=== PATIENT | female | born 1990 | race Hispanic/Latino ===

== ENCOUNTER 2017-05-06 09:58 | Outpatient (CLI) | payer OTHER ==
[2017-05-06 10:26] LABS: #Basophils 0.1 thou/uL (0.0-0.2); #Eosinphils 0.1 thou/uL (0.0-0.7); #Lymphocytes 1.8 thou/uL (1.20-3.40); #Monocytes 0.5 thou/uL (0.11-0.59); #Neutrophils 3.6 thou/uL (1.40-6.50); %Basophils 0.9 % (0.0-1.0); %Eosinophils 1.3 % (0.0-10.0); %Lymphocytes 29.9 % (21.0-51.0); %Monocytes 8.3 % (0.0-10.0); Hematocrit 34.8 % (36.0-47.0); Mean Platelet Volume 7.7 fL (7.4-10.4); Red Blood Cell (RBC) Count 3.97 mill/uL (4.20-5.40); White Blood Cell (WBC) Count 6.1 thou/uL (4.8-10.8)
[2017-05-06 10:27] LABS: Bilirubin Negative (Negative); Blood, Urine Trace (Negative); Glucose, Urine (Dipstick) Negative (Negative); Ketone, Urine Negative (Negative); Nitrite Negative (Negative); Protein, Urine (Dipstick) Negative (Neg-Trace); Urobilinogen 0.2 mg/dL (0.2-1.0)
[2017-05-06 10:52] LABS: Bacteria/HPF Rare-Few HPF (None Seen); RBC/HPF 0-3 HPF (0-3)
[2017-05-06 10:58] LABS: ALT (SGPT) 12 U/L (8-55); AST (SGOT) 15 U/L (5-34); Alkaline Phosphatase 38 U/L (40-150); Anion Gap 10 mmol/L (10-20); BUN (Urea Nitrogen) 15 mg/dL (7.0-18.7); Bilirubin, Total 0.7 mg/dL (0.2-1.2); Calc. Creatinine Clearance 0 mL/min (70-130); Calcium 9.4 mg/dL (7.8-10.44); Carbon Dioxide 27 mmol/L (22-29); Chloride 106 mmol/L (98-107); Estimated GFR-MDRD Greater than 90; Protein, Total 7.5 g/dL (6.0-8.3)
--- NOTE | 2017-05-06 11:16 | RAD ---
3 VIEWS LUMBAR SPINE INCLUDING AP PELVIC INLET AND LATERAL VIEWS OF LUMBOSACRAL SPINE: Date: 05/06/17 HISTORY: pelvic and tail bone pain FINDINGS: No evidence of sacral or coccygeal fractures seen. No significant bony lesions or abnormalities note d. IMPRESSION: Normal 3 views of sacrum and coccyx. POS: [facility]
[2017-05-08 23:10] LABS: HSV-2 IgG Type Specific Less than 0.91 index (0.00-0.90)
== END 2017-05-06 09:59 | disposition home or self-care (01) ==
LOC: SCSRAD 09:58
PROVIDERS: ATTEND Family Medicine
DX: Z11.3 Encounter for screening for infections with a predominantly sexual mode of transmission (principal); M53.3 Sacrococcygeal disorders, not elsewhere classified
CPT/HCPCS: 36415; 72220; 80053; 81001; 84443; 85025; 86592; 86694; 86695; 86696; 87389

== ENCOUNTER 2018-10-02 17:34 | Day surgery (SDC) | payer OTHER ==
[2018-10-02 18:09] VITALS: BMI 25.6
--- NOTE | 2018-10-02 20:09 | PDOC.LDHP ---
Labor and Delivery H&P HPI: Patient is a at 32 weeks EGA with a reported hx of GDM and anemia who presents with pelvic pressure, light occasional discharge, and general fatigue for several days. She missed her appt with Dr Mcneil on Saturday but has an appt scheduled for Saturday. She denies fever, abdominal pain and contractions and vaginal bleeding. Current gestational age (weeks): 32 Due date: 11/24/18 (by 13 wk U/S) Dating criteria: first trimester ultrasound Grav: 3 Para: 2 OB History Details: GDMA1, anterior uterine fibroid, ASCUS pap, A positive, HIV neg, RPR neg, Rubella immune. Current complications: gestational diabetes Abnormal US findings: Yes (Anterior uterine fibroid) Current medications: pre-ambrocio vitamins Previous surgical history: none Allergies/Adverse Reactions: Allergies Allergy/AdvReac Type Severity Reaction Status Date / Time No Known Allergies Allergy Verified 10/02/18 18:09 Social history: none - Physical Exam Vital signs reviewed and normal: yes General: NAD Abdomen: gravid (NTTP) Extremeties: no edema FHT: category 1 (Normal baseline, positive spontaneous accels. normal for 32 weks EGA) - OB Labs Blood type: A RH: positive Antibody Screen: negative HIV: negative RPR: negative 1 hour GCT: positive 3 hour GTT: positive GBS: unknown Rubella: immune - Assessment For her vaginal discharge and pelvic pain I first performed a sterile speculum exam, obtoaining a fFN,VP3 and amnisure. No pooling fluid observed. Cervix appeared closed. No blood in vaginal vault. No significant discharge. After sterile speculum exam completed, cervical exam was 1/thick/ -3. Awaiting test results. Anticipate discharge to home thereafter.
[2018-10-02 20:36] LABS: Amnisure Internal Control QC ACCEPTABLE (ACCEPTABLE); Amnisure Test No Membranes Rupture (No Rupture)
[2018-10-02 20:52] LABS: FFN Internal QC Analyzer PASS (PASS); FFN Internal QC Cassette PASS (PASS); Fetal Fibronectin Negative (Negative)
--- NOTE | 2018-10-02 21:06 | PDOC.EVN ---
Event Note - Event Note Event Note: Amnisure and fFn negative. Discharge to home.
== END 2018-10-02 21:18 | disposition home or self-care (01) ==
LOC: L&D/OP 17:34
DX: O99.89 Other specified diseases and conditions complicating pregnancy, childbirth and the puerperium (principal); N89.8 Other specified noninflammatory disorders of vagina; R10.2 Pelvic and perineal pain; O24.419 Gestational diabetes mellitus in pregnancy, unspecified control; O99.013 Anemia complicating pregnancy, third trimester; D64.9 Anemia, unspecified; O34.13 Maternal care for benign tumor of corpus uteri, third trimester; D25.9 Leiomyoma of uterus, unspecified; Z3A.32 32 weeks gestation of pregnancy; Z79.899 Other long term (current) drug therapy
CPT/HCPCS: 82731; 84112; 87480; 87510; 87660; 99285

== ENCOUNTER 2018-11-06 19:30 | Day surgery (SDC) | payer OTHER ==
[2018-11-06 20:11] VITALS: BMI 26.9
[2018-11-06 21:20] LABS: Amnisure Test No Membranes Rupture (No Rupture)
[2018-11-06 21:21] LABS: Amnisure Internal Control QC ACCEPTABLE (ACCEPTABLE)
--- NOTE | 2018-11-06 22:14 | PDOC.FPROB ---
FMR OB H&P: HPI - History of Present Illness Chief Complaint: leaking fluid Indentification: @ 37.4 History of Present Illness: at 37.4 by LMP/13.1wk siva presents to L&D for leaking fluid. Started this afternoon, slow leakage of clear fluid that soaked through underwear and shorts. Denies big gush of fluid. Denies VB; endorses FM and CTX. Denies HUNTER, chest pain, SOB. Checked in clinic last week . Primary Care Physician: Dr. 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: High risk HPV, plan for colpo 6wk PP - Surgical History Sx History: denies - Social History Social History: denies t/e/d FMR OB H&P: Medications - Current Home Medications: Medication Instructions Recorded Confirmed Type Ferrous Sulfate 325 mg PO DAILY 11/06/18 11/06/18 History Allergies/Adverse Reactions: Allergies Allergy/AdvReac Type Severity Reaction Status Date / Time No Known Allergies Allergy Verified 11/06/18 20:11 FMR OB H&P: ROS - Review of Systems General: denies: fever/chills, weight/appetite/sleep changes Eyes: denies: eye pain ENT: denies: nasal congestion, rhinorrhea Cardiovascular: denies: chest pain, edema Respiratory: denies: cough, congestion, shortness of breath Gastrointestinal: denies: abdominal pain Genitourinary (Female): reports: vaginal discharge, contractions. denies: dysuria, vaginal pain, vaginal bleeding, vaginal pressure Musculoskeletal: denies: pain, stiffness Neurologic: denies: seizures Breast: denies: lumps, bumps Psychological: denies: depression, anxiety FMR OB H&P: Vital Signs - Heart Tones Baseline: 140 Variability: moderate Acceleration: present Deceleration: absent Category: category 1 FMR OB H&P: Physical Exam - Physical Exam General: NAD, awake, alert and oriented HEENT: normocephalic and atraumatic, PERRLA, EOMI Neck: supple, FROM Chest: non-tender to palpation Heart: RRR, normal S1/S2 General: CTAB, no respiratory distress, good air movement Abdomen: soft, fundus(cm) Neurological: no focal deficit Skin: no rash, good tugor, capillary refill <2 seconds Lymphatic: no unusual bruising or bleeding Psychiatric: intact recent and remote memory, good judgement and insight, normal mood and affect - Pelvic Exam SVE: FMR OB H&P: Results - Labs Lab results: Laboratory Results - last 24 hr 11/06/18 20:44 Amnio Swab Test No Membranes Rupture FMR OB H&P: A/P - Problem List (1) Term Status: Acute Code(s): Z34.80 - ENCOUNTER FOR SUPRVSN OF NORMAL , UNSP TRIMESTER (2) Gestational diabetes Status: Acute Code(s): O24.419 - GESTATIONAL DIABETES MELLITUS IN , UNSP CONTROL (3) High risk HPV infection Status: Acute Code(s): B97.7 - PAPILLOMAVIRUS THE CAUSE OF DISEASES CLASSIFIED ELSEWHERE (4) Anemia affecting Status: Acute Code(s): O99.019 - ANEMIA COMPLICATING , UNSPECIFIED TRIMESTER (5) Vaginal discharge in third trimester, antepartum Status: Acute Code(s): O26.893 - OTH RELATED CONDITIONS, THIRD TRIMESTER; N89.8 - OTHER SPECIFIED NONINFLAMMATORY DISORDERS OF VAGINA Disposition: 28 at 37.4 by LMP/13.1wk sono term, sIUP -amnisure negative, pooling with white discharge, pending VP3 -FHT: Cat I, uterine irritability -SVE: , unchanged from check in clinic last week -Due to patient uncomfortability will continue to monitor for labor rule out A1GDM -POC at home have been w/in range High risk HPV -plan for colpo 6wk Anemia of -continue ferrous sulfate Discussed with Dr. Jarrell Discussion: Date/Time: 11/06/18 955 This H&P was discussed with [] and [] who agree with the above documentation and plan. Addendum - Attending - Attending Attestation Date/Time: 11/07/18 4972 I personally evaluated the patient and discussed the management with Dr. Matson last evening. I agree with the History, Examination, Assessment and Plan documented above with any addition or exceptions noted below.
--- NOTE | 2018-11-07 00:44 | PDOC.EVN ---
Event Note - Event Note Event Note: Recheck was unchanged at 3. Discussed w/ pt going home vs. staying. Patient opted to go home and discussed labor precuations to return if feeling stronger contractions or very uncomfortable.
== END 2018-11-07 00:58 | disposition home or self-care (01) ==
LOC: L&D/OP 19:30
PROVIDERS: ATTEND Student in an Organized Health Care Education/Training Program
DX: O26.893 Other specified pregnancy related conditions, third trimester (principal); N89.8 Other specified noninflammatory disorders of vagina; O99.013 Anemia complicating pregnancy, third trimester; O24.419 Gestational diabetes mellitus in pregnancy, unspecified control; O98.313 Other infections with a predominantly sexual mode of transmission complicating pregnancy, third trimester; O99.830 Other infection carrier state complicating pregnancy; B97.7 Papillomavirus as the cause of diseases classified elsewhere; Z3A.37 37 weeks gestation of pregnancy; Z79.899 Other long term (current) drug therapy
CPT/HCPCS: 84112; 87480; 87510; 87660; 99285

== ENCOUNTER 2018-11-08 08:18 | Day surgery (SDC) | payer OTHER ==
--- NOTE | 2018-11-08 09:00 | PDOC.FPROB ---
Addendum entered and electronically signed by Casandra Mcneil DO 11/08/18 10 :04: Category I strip Baselien 140's Accelerations present No deceleration BP 108/69 Pulse 89 Afebrile Original Note: FMR OB H&P: HPI - History of Present Illness Chief Complaint: Vaginal spotting Indentification: 28 year old at 37.5 wks by LMP/13.1 wk sono History of Present Illness: 28 year old at 37.5 wks by LMP/13.1 wk sono presents with a one day history of vaginal spotting. She states that yesterday she noted brown discharge when wiping. She did not think much of it, but this morning when she wiped she noted pink d/c on toilet paper. She couldn't quantify how much was present but states she feels like it was on most of the toilet paper she was using. She did not notice any spotting or discharge on her underwear. Patient endorses contractions q30 minutes and vaginal pressure. She denies LoF. She endorses good movement. 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 Will need Colpo 6 wk PP. - Surgical History Sx History: Denies - Social History Social History: Denies alcohol, tobacco, or drug use. - Family History Family History: Noncontributory. FMR OB H&P: Medications - Current Home Medications: Medication Instructions Recorded Confirmed Type Ferrous Sulfate 325 mg PO DAILY 11/06/18 11/06/18 History Allergies/Adverse Reactions: Allergies Allergy/AdvReac Type Severity Reaction Status Date / Time No Known Allergies Allergy Verified 11/08/18 08:47 FMR OB H&P: ROS - Review of Systems General: denies: fever/chills, weight/appetite/sleep changes Eyes: denies: vision changes, double vision, scotomas ENT: denies: nasal congestion, rhinorrhea, sore throat Cardiovascular: reports: edema (feet b/l). denies: chest pain, palpitation Gastrointestinal: denies: abdominal pain, cramping, nausea, vomiting, diarrhea, constipation Genitourinary (Female): reports: polyuria, vaginal discharge (brown spotting), contractions (q30 min), vaginal pressure. denies: incontinence, dysuria Musculoskeletal: denies: pain, stiffness, tenderness Neurologic: denies: numbness, syncope Hematologic/Lymphatic: denies: prolonged or excessive bleeding Psychological: denies: depression, anxiety FMR OB H&P: Physical Exam - Physical Exam General: NAD, awake, alert and oriented HEENT: MMM, grossly normal vision, grossly normal hearing Heart: RRR, normal S1/S2, no murmurs/rubs/gallops General: CTAB, no respiratory distress Abdomen: soft, gravid, non-tender Musculoskeletal: pulses present, FROM in all four extremities Neurological: no tremor, no focal deficit Skin: no rash, capillary refill <2 seconds Lymphatic: no unusual bruising or bleeding, no purpura Psychiatric: intact recent and remote memory, good judgement and insight, normal mood and affect - Pelvic Exam Vulva: normal hair distribution FMR OB H&P: A/P - Problem List (1) Term Status: Acute Code(s): Z34.80 - ENCOUNTER FOR SUPRVSN OF NORMAL , UNSP TRIMESTER (2) Glucose intolerance Status: Acute Code(s): E74.39 - OTHER DISORDERS OF INTESTINAL CARBOHYDRATE ABSORPTION (3) Anemia affecting Status: Acute Code(s): O99.019 - ANEMIA COMPLICATING , UNSPECIFIED TRIMESTER (4) High risk HPV infection Status: Acute Code(s): B97.7 - PAPILLOMAVIRUS THE CAUSE OF DISEASES CLASSIFIED ELSEWHERE (5) Vaginal spotting Status: Acute Code(s): N93.9 - ABNORMAL UTERINE AND VAGINAL BLEEDING, UNSPECIFIED Disposition: 28 year old at 37.5 wks by LMP/13.1 wk sono presents with a one day history of vaginal spotting 1. TIUP - 37.5 wks - Complicated by glucose intolerance - Contractions q30 minutes 2. Vaginal spotting - VP3 performed 3 days ago negative - Will get straight cath UA to verify no urine infection; clean UA - No recent sexual intercourse - Appears to be resolving - Cervical exam unchanged from 2 days ago 2 - Reassurance 3. Anemia of - Continue iron supplementation 4. Glucose intolerance - Abnml 1h GTT, refused 3h GTT - BG at home wnl 5. ASCUS with HR HPV - Colpo in 6 weeks Dispo: Plan to d/c home with labor precautions. Discussion: Date/Time: 11/08/18 8149 This H&P was discussed with Dr. Rutledge who agrees with the above documentation and plan. Signature: Casandra Mcneil, PGY-2 Addendum - Attending - Attending Attestation Date/Time: 11/08/18 9953 I personally evaluated the patient and discussed the management with Dr. Mcneil. I agree with the History, Examination, Assessment and Plan documented above with any addition or exceptions noted below.
[2018-11-08 09:32] LABS: Bilirubin Negative (Negative); Blood, Urine Negative (Negative); Clarity CLEAR (Clear); Glucose, Urine (Dipstick) Negative (Negative); Leukocyte Negative (Negative); Nitrite Negative (Negative); Protein, Urine (Dipstick) Negative (Neg-Trace); Urobilinogen 0.2 mg/dL (0.2-1.0); pH, Urine 6.5 (5.0-9.0)
== END 2018-11-08 10:25 | disposition home or self-care (01) ==
LOC: L&D/OP 08:18
PROVIDERS: ATTEND Family Medicine
DX: O26.853 Spotting complicating pregnancy, third trimester (principal); O99.013 Anemia complicating pregnancy, third trimester; O99.283 Endocrine, nutritional and metabolic diseases complicating pregnancy, third trimester; E74.39 Other disorders of intestinal carbohydrate absorption; O98.313 Other infections with a predominantly sexual mode of transmission complicating pregnancy, third trimester; B97.7 Papillomavirus as the cause of diseases classified elsewhere; Z3A.37 37 weeks gestation of pregnancy; Z79.899 Other long term (current) drug therapy
CPT/HCPCS: 51701; 81003; 99282

== ENCOUNTER 2018-11-17 06:30 | Inpatient (IN) | payer OTHER ==
[2018-11-17 08:41] VITALS: BMI 28.3
--- NOTE | 2018-11-17 08:50 | PDOC.FPROB ---
FMR OB H&P: HPI - History of Present Illness Chief Complaint: induction Indentification: 28 yo @ 39.0 wk by LMP/13.1 wk sono History of Present Illness: 28 yo @ 39.0 wk by LMP/13.1 wk sono presents for elective IOL. +FM, no vaginal bleeding, abnormal discharge, or LOF. Primary Care Physician: [facility], Dr. Mcneil FMR OB H&P: Current - Care : 3 Para: 2001 Gestational age: 39.0 Due date: 11/24/18 Dating Criteria: LMP/13.1 wk sono Total weight gain: 37 lb Course/Complications: anemia of Glucose intolerance excessive weight gain of 37 lbs BV treated with flagyl this - OB Labs Blood type: A RH: positive Antibody Screen: negative HIV: negative RPR: negative HepBsAg: negative Rubella: immune Gonorrhea: negative Chlamydia: negative Pap Smear: ASCUS 1 hour gtt: 176 3 hour GTT: not performed at patient request A1c: 5.3 GBS: negative H&H: 9.4/27.1 on 10/07/18 - Additional Ultrasound Additional: uterine fibroid 4 cm x4cm seen on sono, sent to [facility]: ultrasound which made no mention of a fibroid FMR OB H&P: History - Past Medical History PMH: Denies - OB History OB History: @ termx2 1st - @ 40 weeks 2nd - via induction @ 38 wks for A1GDM - BAGGAGEMAN History BAGGAGEMAN History: ASCUS with HR HPV on recent pap smear. Will need Colpo 6 wks PP. - Surgical History Sx History: Denies - Social History Social History: Denies tobacco, alcohol, or drug use - Family History Family History: Parents both healthy. Reports pGM has DM, HTN, and possibly a heart problem (unsure of what). Denies history of other genetic diseases or cancer. FMR OB H&P: Medications - Current Home Medications: Medication Instructions Recorded Confirmed Type Ferrous Sulfate 325 mg PO DAILY 11/06/18 11/17/18 History Allergies/Adverse Reactions: Allergies Allergy/AdvReac Type Severity Reaction Status Date / Time No Known Allergies Allergy Unverified 11/17/18 10:51 FMR OB H&P: ROS - Review of Systems General: denies: fever/chills, weight/appetite/sleep changes Eyes: reports: vision changes (blurry vision occasionally over last 2 months). denies: double vision, scotomas ENT: reports: nasal congestion, rhinorrhea. denies: sore throat Cardiovascular: reports: edema. denies: chest pain, palpitation Gastrointestinal: denies: abdominal pain, cramping, nausea, vomiting, diarrhea, constipation Genitourinary (Female): reports: polyuria, contractions (q12-15 minutes, back pain; patient reports she can talk through them), vaginal pressure. denies: incontinence, dysuria, vaginal pain, vaginal bleeding Musculoskeletal: denies: pain, stiffness, tenderness Neurologic: denies: numbness, syncope Hematologic/Lymphatic: denies: prolonged or excessive bleeding Psychological: denies: depression, anxiety FMR OB H&P: Vital Signs - Maternal Vital signs: Vital Signs - First Documented Temp Pulse Resp BP 98.3 F 75 18 117/72 11/17/18 07:42 11/17/18 07:42 11/17/18 07:42 11/17/18 07:42 - Heart Tones Baseline: 140 Variability: moderate Acceleration: present Deceleration: absent Category: category 1 [place] contractions every: only 1 seen FMR OB H&P: Physical Exam - Physical Exam General: NAD, awake, alert and oriented HEENT: normocephalic and atraumatic, PERRLA, MMM, grossly normal hearing, oropharynx clear Neck: supple, no LAD Heart: RRR, normal S1/S2, no murmurs/rubs/gallops, pulses present General: CTAB, no respiratory distress, good air movement, no rales/rhonchi, no wheezing Abdomen: soft, gravid, non-tender, bowel sound present Musculoskeletal: pulses present, no atrophy Neurological: no clonus, no focal deficit Skin: no rash, good tugor, capillary refill <2 seconds Lymphatic: no unusual bruising or bleeding, no purpura Psychiatric: intact recent and remote memory, good judgement and insight, normal mood and affect - Pelvic Exam SVE: /-2 @ 0915 Presentation: head down on bedside sono FMR OB H&P: A/P - Problem List (1) Term Current Visit: No Status: Acute Code(s): Z34.80 - ENCOUNTER FOR SUPRVSN OF NORMAL , UNSP TRIMESTER (2) Anemia affecting Current Visit: No Status: Acute Code(s): O99.019 - ANEMIA COMPLICATING , UNSPECIFIED TRIMESTER (3) Glucose intolerance Current Visit: No Status: Acute Code(s): E74.39 - OTHER DISORDERS OF INTESTINAL CARBOHYDRATE ABSORPTION (4) Excessive weight gain affecting Current Visit: Yes Status: Acute Code(s): O26.00 - EXCESSIVE WEIGHT GAIN IN , UNSPECIFIED TRIMESTER (5) High risk HPV infection Current Visit: No Status: Acute Code(s): B97.7 - PAPILLOMAVIRUS THE CAUSE OF DISEASES CLASSIFIED ELSEWHERE Discussion: Date/Time: 11/17/18 0850 28 year old at 39.0 wks by LMP/13.1 wk sono presents for induction of labor, SILVIA 11/24/18 1. TIUP - elective IOL @ 39.0 wks - GBS neg - Complicated by glucose intolerance and anemia of - FHTs: 140, accels present, no decels - SVE: /-2 @ 0915 - Start pitocin induction 3. Anemia of - 9.4/27.1 on 10/07/18 - Continue iron supplementation 4. Glucose intolerance - Abnml 1h GTT, refused 3h GTT - Home glucoses were well controlled per PCP - A1C 5.3 - BG at home wnl 5. ASCUS with HR HPV - Colpo 6 weeks PP 6. Excessive weight gain in - 123 lbs pre- (BMI of 21) - now 161 lbs, 37 lb weight gain PCP: Dr. Mcneil Addendum - Attending - Attending Attestation Date/Time: 11/17/18 0911 I personally evaluated the patient and discussed the management with Dr. Pfeiffer I agree with the History, Examination, Assessment and Plan documented above with any addition or exceptions noted below. 28 yo female at 39.0 wks by LMP/13.1 wk sono here for elective IOL SILVIA: 11/24/18 Patient denies any current complications. Denies VB, LOF, and decreased movement. Bedside sono: Cephalic. Posterior placenta. FHT cat 1. Occasional contractions. Maternal VS reviewed. R/B/A discussed. Questions answered. Consents signed. Will proceed with pitocin induction. [place] 6. Continuous monitoring. Repeat exam prn or in 4 hours. Will check POC glucose with labs due to glucose intolerance. Casa
[2018-11-17] MEDS: Lactated Ringer's 1,000 ML IV SCH ×3 (08:52→19:32)
[2018-11-17] MEDS ORDERED: Methylergonovine 0.2 MG/ML VIAL IM PRN (08:57)
[2018-11-17] MEDS ORDERED: Misoprostol 200 MCG TAB PR PRN (08:57)
[2018-11-17] MEDS ORDERED: Acetaminophen 500 MG TAB PO PRN (08:57)
[2018-11-17] MEDS ORDERED: Ondansetron PF 4 MG/2 ML Vial IVP PRN ×2 (08:57→11:31)
[2018-11-17] MEDS ORDERED: Carboprost 250 MCG/ML AMP IM PRN (08:57)
[2018-11-17] MEDS ORDERED: Lidocaine 1% (PF) 30 ML VIAL SC PRN (08:57)
[2018-11-17] MEDS ORDERED: Promethazine HCl 25 MG/ML VIAL IM PRN ×2 (08:57→11:31)
[2018-11-17] MEDS ORDERED: NS / Oxytocin 40 units/1000ml 1,000 ML IV PRN (08:57)
[2018-11-17 09:48] LABS: Hemoglobin 10.1 g/dL (12.0-16.0); Mean Corpuscular HGB CONC 33.7 g/dL (32.0-36.0); Mean Corpuscular Hemoglobin 29.8 pg (27.0-31.0); Mean Corpuscular Volume 88.2 fL (78.0-98.0); Mean Platelet Volume 7.8 fL (7.4-10.4); Platelet Count 304 thou/uL (130-400); Red Blood Cell (RBC) Count 3.39 mill/uL (4.20-5.40); White Blood Cell (WBC) Count 8.9 thou/uL (4.8-10.8)
[2018-11-17] MEDS ORDERED: NS w/ Oxytocin 10 units 500 ML IV SCH ×3 (10:15)
[2018-11-17 10:18] LABS: HBSAg Index 0.36 S/CO (0-0.99); Hep B Surf Ag Non-Reactive S/CO (NonReactive)
[2018-11-17 10:23] LABS: Syphilis Antibody Nonreactive (Nonreactive); Syphilis Antibody Index 0.04 S/CO (<1.00 Non-Reactive)
[2018-11-17] MEDS ORDERED: Fentanyl 4 mcg/Bup 0.1% Cadd 100 ML ONE ×2 (10:25→18:30)
[2018-11-17] MEDS ORDERED: Lidocaine 1.5%/Epinephrine 1:200,000 5 ML AMPUL IJ ONE (10:30)
[2018-11-17] MEDS ORDERED: diphenhydrAMINE 50 MG/ML VIAL IVP PRN (11:31)
[2018-11-17] MEDS ORDERED: Lactated Ringer's 500 ML IV PRN (11:31)
[2018-11-17] MEDS ORDERED: Eucerin (Mineral Oil/Petrolatum,White) 30 gm Jar TOP PRN (11:31)
[2018-11-17] MEDS ORDERED: Naloxone HCl 0.4 mg/ml Vial IVP PRN ×2 (11:31)
[2018-11-17] MEDS ORDERED: ePHEDrine/0.9% NaCl/PF SYRINGE 50 mg/10 ml SLOW IVP PRN (11:31)
[2018-11-17] MEDS ORDERED: Communication Order-Pharmacy FS SCH (11:45)
[2018-11-17] MEDS ORDERED: Fentanyl 4 mcg/Bupivacaine 0.1% Cassette 100 ML EPIDURAL SCH (11:45)
--- NOTE | 2018-11-17 12:25 | PDOC.LDPN ---
Labor & Delivery Progress Note - Subjective Subjective: comfortable - Objective Vital signs reviewed and normal: yes General: NAD, resting Uterine fundus: non tender [place] contractions every: q5 min -: 1. TIUP - elective IOL @ 39.0 wks - GBS neg - Complicated by glucose intolerance and anemia of - FHTs: 130, accels present, 1 variable and 1 late decel present, intermittent Cat 2 strip - SVE: /-2 @ 0915 - SVE: /-2 @ 1245 - Continue pitocin induction, recheck SVE in 4 hours, will continue to monitor strip 3. Anemia of - 9.4/27.1 on 10/07/18 - Continue iron supplementation 4. Glucose intolerance - Abnml 1h GTT, refused 3h GTT - Home glucoses were well controlled per PCP - A1C 5.3 - BG at home wnl 5. ASCUS with HR HPV - Colpo 6 weeks PP 6. Excessive weight gain in - 123 lbs pre- (BMI of 21) - now 161 lbs, 37 lb weight gain PCP: Dr. Mcneil Addendum - Attending - Attending Attestation Date/Time: 11/17/18 1300 I personally evaluated the patient and discussed the management with Dr. Pfeiffer I agree with the History, Examination, Assessment and Plan documented above with any addition or exceptions noted below. 28 yo female at 39.0 wks by LMP/13.1 wk sono here for elective IOL SILVIA: 11/24/18 Doing well. No complaints of pain, LOF, or VB FHT cat 1 to brief cat 2. ctx q 8 mins SVE unchanged. Continue IOL per pitocin protocol. Nursing staff stretched and unable to manage pitocin as strict as possible. Pitocin adjustments increasing slowly. Fetus tolerating well. Will continue monitoring closely. Glucose intolerance. POC WNL. ASCUS pap. Needs pp colpo. Mild iron def anemia. Casa
[2018-11-17] MEDS ORDERED: Dextrose 5%-Lactated Ringers 1,000 ML IV SCH (17:00)
--- NOTE | 2018-11-17 17:01 | PDOC.LDPN ---
Labor & Delivery Progress Note - Subjective Subjective: comfortable, no concerns - Objective Vital signs reviewed and normal: yes General: NAD, resting Uterine fundus: non tender SVE: 50/-1 FHT: category 2 [place] contractions every: q3 minutes Resuscitative measures: other (juice PO) - Assessment (1) Term Code(s): Z34.80 - ENCOUNTER FOR SUPRVSN OF NORMAL , UNSP TRIMESTER Current Visit: No Status: Acute (2) Anemia affecting Code(s): O99.019 - ANEMIA COMPLICATING , UNSPECIFIED TRIMESTER Current Visit: No Status: Acute (3) Glucose intolerance Code(s): E74.39 - OTHER DISORDERS OF INTESTINAL CARBOHYDRATE ABSORPTION Current Visit: No Status: Acute (4) Excessive weight gain affecting Code(s): O26.00 - EXCESSIVE WEIGHT GAIN IN , UNSPECIFIED TRIMESTER Current Visit: Yes Status: Acute (5) High risk HPV infection Code(s): B97.7 - PAPILLOMAVIRUS THE CAUSE OF DISEASES CLASSIFIED ELSEWHERE Current Visit: No Status: Acute Plan: continue plan of care -: 28 yo @ 39.0 wk by LMP/13.1 wk sono presents for elective IOL. TIUP - elective IOL @ 39.0 wks - GBS neg - Complicated by glucose intolerance and anemia of - SVE: 50/-2 @ 0915, pitocin started - SVE: 50/-2 @ 1245 - SVE: 50/-1 @ 1645 - FHTs: 130, accels present, occasional variable decel with intermittent minimal variability. Intermittent Cat 2 strip. -Variability improved with PO juice - Continue pitocin induction. Continue to monitor strip. Recheck SVE in 4 hours. LR transitioned to D5 LR. Addendum - Attending - Attending Attestation Date/Time: 11/17/18 1720 I personally evaluated the patient and discussed the management with Dr. Pfeiffer. I agree with the History, Examination, Assessment and Plan documented above with any addition or exceptions noted below. Cat 1 (mod thelma, + accels, - decels) on my last review of strip. Recheck in 2 hours and plan for AROM at that time.
--- NOTE | 2018-11-17 18:43 | PDOC.LDPN ---
Labor & Delivery Progress Note - Subjective Subjective: comfortable - Objective Vital signs reviewed and normal: yes General: NAD, resting Uterine fundus: non tender SVE: 18:30 Dilation: 5 Effacement: 75% Station: -1 FHT: category 1, variability present [place] contractions every: q2 min AROM: clear fluid - Assessment (1) Encounter for elective induction of labor Code(s): Z34.90 - ENCNTR FOR SUPRVSN OF NORMAL , UNSP, UNSP TRIMESTER Current Visit: Yes Status: Acute Plan: continue plan of care, labor augmentation, pitocin for augmentation -: Continue augmentation with pitocin. Cat I strip currently. AROM, clear fluid at 18:30. 5/70/-1 at that time. Recheck in 2 hours.
--- NOTE | 2018-11-17 21:31 | PDOC.EVN ---
Event Note - Event Note Event Note: Attending Note - I was present and supervised/assisted with the of a 28 yo @39 weeks admitted for elective induction of labor who progressed to complete after initiation of pitocin. She delivered a viable male infant over an intact perineum. Loose nuchal cord. Apgars 9 /9. Placenta delivered spontaneously and intact. 3V cord. No epis or l;acerations. UMS=807 mL. Resident Star Mcneil.
[2018-11-17] MEDS ORDERED: Bisacodyl 10 MG SUPP PR PRN (23:22)
[2018-11-17] MEDS ORDERED: Adacel (T-DAP) 0.5 ML SYRINGE IM ONE (23:22)
[2018-11-17] MEDS ORDERED: Milk Of Magnesia 30 ML UDCUP PO PRN (23:22)
[2018-11-17] MEDS ORDERED: diphenhydrAMINE 25 MG CAP PO PRN (23:22)
[2018-11-17] MEDS ORDERED: Lanolin Ointment 7 GM TUBE TOP PRN (23:22)
[2018-11-17] MEDS ORDERED: NS / Oxytocin 40 units/1000ml 1,000 ML IV SCH (23:22)
[2018-11-17] MEDS ORDERED: Preparation H Ointment 28 GM TUBE PR PRN (23:22)
[2018-11-17] MEDS ORDERED: Docusate Calcium (SURFAK) 240 MG CAP PO SCH (23:45)
[2018-11-18] MEDS: Ibuprofen 800 MG TAB PO SCH ×4 (00:05→22:01)
[2018-11-18] MEDS: Acetaminophen 325 MG TAB PO PRN ×2 (00:55→04:42)
[2018-11-18] MEDS ORDERED: Bupivacaine 0.25% HCL 30 ML VIAL ONE (02:00)
[2018-11-18] MEDS ORDERED: Sodium Chloride 0.9% (PF) 10 ML VIAL ONE (02:00)
--- NOTE | 2018-11-18 02:02 | OP ---
DATE OF PROCEDURE: 11/17/2018 RESIDENT SURGEON: Casandra Mcneil DO. ATTENDING: Candi Osei MD PROCEDURE PERFORMED: Spontaneous vaginal delivery. PREOPERATIVE DIAGNOSES: 1. Encounter for elective induction of labor at 39 weeks. 2. Term intrauterine . 3. Glucose intolerance. 4. Anemia of . 5. Pap smear - ASCUS plus. 6. human papillomavirus. POSTOPERATIVE DIAGNOSES: 1. Term intrauterine , delivered. 2. Glucose intolerance. 3. Anemia of . 4. Pap smear - ASCUS plus. 5. Human papillomavirus. INDICATIONS: This is a 28-year-old, G3, P2-0-0-2 who presented to Labor and Delivery for elective induction of labor. DESCRIPTION OF PROCEDURE: Following uncomplicated antepartum course, a vigorous male infant was delivered over an intact perineum in the occipitoanterior position. Anterior shoulder and remainder of body were delivered. There was a loose nuchal x1, which was reduced after delivery of the . The was bulb suctioned at the perineum. After delayed clamping, cord was cut and cord blood was collected. Placenta was then delivered intact and 3-vessel cord was noted. The perineum was inspected for lacerations and was found to be free of lacerations. Fundus was firm and there was no active bleeding. The was delivered at 20:33 on 11/17. No complications. Apgars were 9 and 9 at 1 and 5 minutes respectively. Infant will go to nursery for routine recovery/care. Job ID: [id number] [id number]
--- NOTE | 2018-11-18 05:01 | PDOC.PP ---
Post Progress Note Post Day #: 1 Subjective: Patient doing well. No significant overnight events. Patient tolerating PO, ambulating, and passing flatus. Patient does endorse low back pain. She is taking her motrin scheduled. It helps a little. She denies any rectum pain. PO intake tolerated: yes Flatus: yes Ambulation: yes Vital Signs (12 hours) Temp Pulse Resp BP Pulse Ox 11/18/18 04:51 98.0 F 85 17 115/60 11/18/18 02:10 98 11/18/18 01:00 98.0 F 78 16 105/58 L 11/17/18 23:50 98.0 F 87 17 119/64 98 Weight Weight 72.575 kg - Physical Examination General: NAD Cardiovascular: no m/r/g, RRR Respiratory: clear to auscultation bilaterally, non-labored breathing Abdominal: + bowel sounds, lochia (minimal), no distention, appropriately TTP Fundus firm & at: umbilicus Neurological: no gross focal deficits Psychiatric: A&Ox3, normal affect Result Diagrams: 11/17/18 09:20 Additional Labs: Post Labs Blood Type A POSITIVE 11/17/18 09:20 Hep Bs Antigen Non-Reactive S/CO (NonReactive) 11/17/18 09:20 (1) (spontaneous vaginal delivery) Code(s): O80 - ENCOUNTER FOR FULL-TERM UNCOMPLICATED DELIVERY Status: Acute - Assessment/Plan 28 year old G3 now P3 delivered TAGA M infant at 39 wk by LMP/13.1 wk sono via on 11/17 at 20:33 1. Routine PP care - No complications - Minimal lochia (a little more than a period) - VSS - Encourage ambulation - Naya motrin for pain control 2. - No complications - No tears 3. ASCUS with HR HPV - Patient needs colpo 6 wks PP Dispo: d/c home tomorrow AM. Addendum - Attending - Attending Attestation Date/Time: 11/18/18 7803 I personally evaluated the patient and discussed the management with Dr. Mcneil I agree with the History, Examination, Assessment and Plan documented above with any addition or exceptions noted below. 28 yo female s/p uncomplicated at 2032 on 11/17/18 HD# 2 PPD# 1 Doing well. Does report lower back pain. Awaiting heating pad. Ambulating without difficulty. Lochia appropriate. Agree with PE as documented. Fundus nontender and firm below umbilicus s/p : Continue routine pp care. Monitor pain control. lower back pain: heat therapy and ambulation breast feeding: has not had great success with previous children. consulted. ascus/hpv pos: colpo 6 wks pp contraception: unsure dispo: routine pp care ABrayMD
[2018-11-18] MEDS: Ferrous Sulfate 325 MG TAB PO SCH ×3 (10:08→17:27)
[2018-11-18] MEDS: Prenatal Vitamin 1 TAB PO SCH (10:14)
[2018-11-18] MEDS: Docusate Calcium (SURFAK) 240 MG CAP PO SCH ×2 (10:14→22:02)
[2018-11-18 17:10] LABS: Hemoglobin 9.2 g/dL (12.0-16.0)
[2018-11-18] MEDS ORDERED: Cyclobenzaprine 10 MG TAB PO SCH (21:00)
[2018-11-19] MEDS: Ibuprofen 800 MG TAB PO SCH ×2 (05:59→13:56)
--- NOTE | 2018-11-19 06:13 | PDOC.PP ---
Post Progress Note Post Day #: 2 Subjective: Patient doing well. She states her lower back on the right side still hurts. The muscle relaxer helped but made her sleepy which made it difficult to feed infant. She states she would like to take it again at some point to help with the muscle pain, but she would like to hold off until after she has fed her . She is still struggling with and has resorted to mostly bottle feeding at this point. She does have a breast pump in her room now which she was encouraged to use. contract consultant has not been by yet to see her. PO intake tolerated: yes Flatus: yes Ambulation: yes Vital Signs (12 hours) Temp Pulse Resp BP Pulse Ox 11/18/18 21:00 98.2 F 87 18 118/67 97 Weight Weight 72.575 kg - Physical Examination General: NAD Deviation from normal: Tender to palpation over right lumbar paraspinal musculature Cardiovascular: no m/r/g, RRR Respiratory: clear to auscultation bilaterally, non-labored breathing Abdominal: + bowel sounds, lochia (minimal), no distention, appropriately TTP Fundus firm & at: below umbilicus Neurological: no gross focal deficits Psychiatric: A&Ox3, normal affect Result Diagrams: 11/18/18 17:02 Additional Labs: Post Labs Blood Type A POSITIVE 11/17/18 09:20 Hep Bs Antigen Non-Reactive S/CO (NonReactive) 11/17/18 09:20 (1) (spontaneous vaginal delivery) Code(s): O80 - ENCOUNTER FOR FULL-TERM UNCOMPLICATED DELIVERY Status: Acute - Assessment/Plan 28 year old G3 now P3 delivered TAGA M infant at 39 wk by LMP/13.1 wk sono via on 11/17 at 20:33 1. Routine PP care - No complications - Minimal lochia - VSS - Encourage ambulation - Naya motrin for pain control 2. - No complications - No tears 3. ASCUS with HR HPV - Patient needs colpo 6 wks PP 4. Low back pain - Appears MSK - Cyclobenzaprine given which helped, but made patient sleepy - Advised that she could take with caution - Once patient returns home, she needs to do daily stretching to help with back pain 5. Anemia of - Initial Hg 10 - Minimal blood loss during delivery of 106 mL - Repeat Hg yesterday was 9.2 - Patient asymptomatic Dispo: d/c home Addendum - Attending - Attending Attestation Date/Time: 11/19/18 1002 I personally evaluated the patient and discussed the management with Dr. Mcneil I agree with the History, Examination, Assessment and Plan documented above with any addition or exceptions noted below. 28 yo female s/p uncomplicated at 2032 on 11/17/18 HD# 3 PPD# 2 Continues to mid lumbar back pain. Reported as achy and sore. Tender to touch. Difficulty with getting up and laying down. Improved with heating pad. Pain where epidural was placed. Lochia appropriate. No blood clots. Ambulating. Breast feeding. Agree with PE as documented. Fundus nontender and firm below umbilicus Mild tenderness with deep palpation around epidural site. No erythema, edema, discharge, ulcerations. s/p : Pain controlled. Lochia appropriate. Meeting milestones. Ok to d/c. lower back pain 2/2 acute MSK trauma for epidural : heat therapy and ambulation breast feeding: improving. monitor infant weight. has been supplementing. ascus/hpv pos: colpo 6 wks pp contraception: unsure dispo: follow up in 2 wks. precautions discussed. ok to d/c to home. [facility]
[2018-11-19] MEDS ORDERED: Cyclobenzaprine 10 MG TAB PO PRN (08:07)
[2018-11-19 08:16] VITALS: BP 109/53; TEMP 98
[2018-11-19] MEDS: Docusate Calcium (SURFAK) 240 MG CAP PO SCH (09:21)
[2018-11-19] MEDS: Ferrous Sulfate 325 MG TAB PO SCH (09:21)
[2018-11-19] MEDS: Prenatal Vitamin 1 TAB PO SCH (09:21)
== END 2018-11-19 14:05 | disposition home or self-care (01) | DRG 807 ==
LOC: L&D 06:39 → 3SW 23:28
PROVIDERS: ADMIT Family Medicine; ATTEND Family Medicine
PROC: 10E0XZZ Delivery of Products of Conception, External Approach (ICD-10-PCS; principal; 2018-11-17)
PROC: 10907ZC Drainage of Amniotic Fluid, Therapeutic from Products of Conception, Via Natural or Artificial Opening (ICD-10-PCS; 2018-11-17)
PROC: 3E033VJ Introduction of Other Hormone into Peripheral Vein, Percutaneous Approach (ICD-10-PCS; 2018-11-17)
DX: O99.02 Anemia complicating childbirth (principal); Z37.0 Single live birth; O34.13 Maternal care for benign tumor of corpus uteri, third trimester; E74.39 Other disorders of intestinal carbohydrate absorption; O99.284 Endocrine, nutritional and metabolic diseases complicating childbirth; O26.03 Excessive weight gain in pregnancy, third trimester; O69.81X0 Labor and delivery complicated by cord around neck, without compression, not applicable or unspecified; D50.9 Iron deficiency anemia, unspecified; R87.810 Cervical high risk human papillomavirus (HPV) DNA test positive; R87.610 Atypical squamous cells of undetermined significance on cytologic smear of cervix (ASC-US); O99.89 Other specified diseases and conditions complicating pregnancy, childbirth and the puerperium; Z3A.39 39 weeks gestation of pregnancy
CPT/HCPCS: 36415; 36416; 51702; 76815; 85014; 85018; 85027; 86780; 86850; 86900; 86901; 87340; J2001; J2590; J3490; S0020

== ENCOUNTER 2019-06-16 10:57 | Emergency (ER) | payer OTHER, SELFPAY ==
[2019-06-16] MEDS ORDERED: Acetaminophen 500 MG TAB ONE (11:19)
== END 2019-06-16 12:02 | disposition home or self-care (01) ==
LOC: ERS 10:57
DX: J11.1 Influenza due to unidentified influenza virus with other respiratory manifestations (principal); F41.9 Anxiety disorder, unspecified
CPT/HCPCS: 87804; 99283

== ENCOUNTER 2020-01-01 13:54 | Emergency (ER) | payer MEDICAID, OTHER ==
[2020-01-02 16:50] LABS: SARS-CoV-2 MS2 Positive; SARS-CoV-2 N Gene Negative; SARS-CoV-2 S Gene Negative; SARS-CoV-2 orf1ab Negative
== END 2020-01-01 14:54 | disposition home or self-care (01) ==
LOC: ERS 13:54
DX: Z20.828 Contact with and (suspected) exposure to other viral communicable diseases (principal); F41.9 Anxiety disorder, unspecified
CPT/HCPCS: 87635; 99283; U0003